=== PATIENT | female | born 1965 | race Two or more races ===

== ENCOUNTER 2020-05-29 03:32 | Emergency (ER) | payer OTHER ==
[~2020-05-29] VITALS: Ht 172.7 cm; Wt 100.2 kg
[2020-05-29 03:32] VITALS: BP 156/91
--- NOTE | 2020-05-29 03:32 | NUR ---
ED Nurse Note: Patient brought in by ambulance d/t behavioral complaint. Per EMS, patient was found sitting in her car and [employer] contacted for EMS. Patient aao x 4 upon assessment. Patient rambling and has flight of ideas. Patient talks about her and son but unable to provide detailed information. Unable to obtain medical information from patient d/t uncooperative. Patient changed into gown and placed on cardiac cath rn. No acute distress noted during assessment.
--- NOTE | 2020-05-29 03:39 | Emergency Room Report ---
History of Present Illness General Chief Complaint: Behavioral Complaint Source: Patient, EMS Present Illness HPI This a 55-year-old female with no medical problems or psychiatric problems. She presents with chief complaint of bizarre behavior. She was in her car and called 911. When the police responded, she was acting abnormal. She was rambling and they called the quill winder. Here patient keeps talking about her and son but made no sense. Her speech is pressured. She appeared to be anxious and agitated. Denies any alcohol or drugs. History is limited because of her condition. I sent for records from [facility]. She has a history of type 2 diabetes and high blood pressure. She also was diagnosed with schizophrenia with noncompliant with medication. She also has a history of breast cancer. Allergies: Coded Allergies: No Known Allergies (Unverified , 05/29/20) COVID-19 Screening COVID-19 risk:Contact w/high r: No Has patient experienced armstrong: No COVID-19 Testing performed MATERIAL CHECKER: No Patient History Past Medical History: see triage record, old chart reviewed Past Surgical History: none, unable to obtain Family History: none, unable to obtain Last Menstrual Period: NA Now: No : 4 Para: 4 Immunizations: other Reviewed Nursing Documentation: PMH: Agreed; PSxH: Agreed Review of Systems All Other Systems: limited - Secondary to her condition Physical Exam Vital Signs Date Time Temp Pulse Resp B/P (MAP) Pulse Ox O2 Delivery O2 Flow Rate FiO2 05/29/20 03:18 98.2 100 18 140/90 (107) 99 Room Air With high blood pressure Sp02 EP Interpretation: reviewed, normal General Appearance: alert/responsive, no apparent distress, non-toxic, other - Patient is agitated Head: normocephalic, atraumatic Eyes: PERRL, EOMI ENT: oropharynx normal Neck: supple/symm/no masses Respiratory: effort normal, no rhonchi, no wheezing Cardiovascular: no murmur, gallop, rub Gastrointestinal: non-tender, no mass, non-distended, no rebound/guarding, normal bowel sounds Musculoskeletal: gait & station normal Neurologic: oriented x3, sensory intact, motor strength/tone normal Psychiatric: anxious, other - Agitated, pressured speech, rambling Skin: no rash, normal palpation Medical Decision Making Diagnostic Impression: Primary Impression: Behavioral disorder Additional Impression: Panic attack ER Course Presents with agitation and panic attack. She felt better now after medication. Laboratory unremarkable except for elevated glucose. According to friends, patient had a psychotic break. This occur about a year ago when she found out that her was cheating with her friend. And it occurred again in this last few days. Patient denies suicidal thoughts homicidal thought. There is no alcohol or drug use. Will discharge home. Last Vital Signs Date Time Temp Pulse Resp B/P (MAP) Pulse Ox O2 Delivery O2 Flow Rate FiO2 05/29/20 03:18 98.2 100 18 140/90 (107) 99 Room Air Status: improved Disposition: HOME, SELF-CARE Condition: Stable Scripts Lorazepam* (ATIVAN*) 1 Mg Tablet 1 MG ORAL THREE TIMES A DAY for anxiety, #20 TAB Prov: Sandor Kenny MD 05/29/20 Additional Instructions: Follow-up with your doctor in 7 days. Take your medication. You may benefit from referral to see mental health/psychiatrist. Sandor Kenny MD May 29, 2020 03:39
[2020-05-29] MEDS ORDERED: LORazepam Inj 2mg/ml 1ml IV ONE (03:45)
[2020-05-29] MEDS ORDERED: Haloperidol 5mg/ml Inj IM ONE (03:45)
--- NOTE | 2020-05-29 03:53 | NUR ---
ED Nurse Note: Blood, urine, and COVID swab collected and sent to lab
[2020-05-29 04:01] LABS: APPEARANCE,URINE CLEAR; BILIRUBIN, URINE NEGATIVE (NEGATIVE); EOSINOPHILS % (AUTO) 1.6 % (0.0-3.0); GLUCOSE, URINE (UA) 4+ (NEGATIVE); HEMATOCRIT 43.2 % (37.0-47.0); KETONES,URINE 3+ (NEGATIVE); LEUKOCYTE ESTERASE ,URINE 1+ (NEGATIVE); LYMPHOCYTES % (AUTO) 20.2 % (20.0-45.0); MEAN CORPUSCULAR VOLUME 81 FL (80-99); MONOCYTES % (AUTO) 6.4 % (1.0-10.0); NEUTROPHILS % (AUTO) 67.8 % (45.0-75.0); NITRITE,URINE NEGATIVE (NEGATIVE); PH,URINE 6 (4.5-8.0); PLATELET COUNT 183 K/UL (150-450); PROTEIN,URINE 3+ (NEGATIVE); RED BLOOD COUNT 5.33 M/UL (4.20-5.40); RED CELL DISTRIBUTION WIDTH 13.2 % (11.6-14.8); UROBILINOGEN,URINE NORMAL MG/DL (0.0-1.0); WHITE BLOOD COUNT 11.1 K/UL (4.8-10.8)
[2020-05-29 04:09] LABS: COLOR,URINE YELLOW
[2020-05-29 04:16] LABS: ANION GAP 15 mmol/L (5-15); BLOOD UREA NITROGEN 18 mg/dL (7-18); CALCIUM 8.8 MG/DL (8.5-10.1); CARBON DIOXIDE 23 MMOL/L (21-32); CHLORIDE 105 MMOL/L (98-107); POTASSIUM 4.1 MMOL/L (3.5-5.1); SODIUM 142 MMOL/L (136-145)
[2020-05-29 04:20] LABS: ALANINE AMINOTRANSFERASE 26 U/L (12-78); ALKALINE PHOSPHATASE 107 U/L (46-116); ASPARTATE AMINO TRANSFERASE 38 U/L (15-37); BILIRUBIN,TOTAL 0.9 MG/DL (0.2-1.0)
--- NOTE | 2020-05-29 04:59 | NUR ---
ED Nurse Note: Called patient's sister, Ashley and informed her of patient's current status. Ashley reported that her and patient's has been looking for her. Contact information including address and telephone number rendered to patient's sister. Patient's sister intends to give information to patient's to come and pick her up soon.
[2020-05-29] MEDS ORDERED: ATIVAN1 MG ORAL (05:30)
[2020-05-29 05:54] VITALS: BP 135/69
--- NOTE | 2020-05-29 05:54 | NUR ---
ER DISCHARGE NOTE: Patient is cleared to be discharged per ERMD, pt is aox4, on room air, with stable vital signs. pt was given dc and prescription instructions, pt was able to verbalize understanding, pt id band and iv site removed intact without complications. pt is able to ambulate with steady gait. pt took all belongings. pt discharged in stable condition accompanied by sister.
== END 2020-05-29 05:54 | disposition home or self-care (01) ==
LOC: EDBD 03:32 → EMR 03:39
DX: F91.9 Conduct disorder, unspecified (principal); F41.0 Panic disorder [episodic paroxysmal anxiety]; E11.9 Type 2 diabetes mellitus without complications; I10 Essential (primary) hypertension; F20.9 Schizophrenia, unspecified; Z91.14 Patient's other noncompliance with medication regimen; Z85.3 Personal history of malignant neoplasm of breast
CPT/HCPCS: 36415; 80053; 80307; 81003; 85025; 96361; 96372; 96374; 99284; G0480; J1630; J7030; U0002